=== PATIENT | female | born 1975 | race Hispanic/Latino ===

== ENCOUNTER 2018-10-30 14:39 | Emergency (ER) | payer MEDICARE, MEDICAID ==
[2018-10-30 14:39] VITALS: BMI 42.2
[2018-10-30] MEDS ORDERED: Albuterol-Ipratrop 3 mg / 0.5 (3 ml) UD ONE (15:25)
[2018-10-30] MEDS ORDERED: Albuterol-Ipratrop 3 mg / 0.5 (3 ml) UD INH STA (15:30)
[2018-10-30 16:21] VITALS: BP 102/67; PULSE 102; RESP 18; TEMP 100; O2SAT 95
--- NOTE | 2018-10-30 16:39 | C.PDOC ---
History Of Present Illness Patient reports cough, congestion, headache, fever, chills- "feel freezing", body aches, dizziness, nausea since yesterday. States that headache is what is bothering her most. Reports no sick contacts. HPI: Influenza Time Seen by Provider: 10/30/18 15:17 Chief Complaint: Flu-like Symptoms Past Medical History Reviewed: Historical Data, Nursing Documentation, Vital Signs Vital Signs: Last Vital Signs Temp 100.0 F H 10/30/18 16:20 Pulse 102 H 10/30/18 16:20 Resp 18 10/30/18 16:20 BP 102/67 10/30/18 16:20 Pulse Ox 95 10/30/18 16:20 - Medical History PMH: Bronchitis Denies: Depression Family History: States: Unknown Family Hx - Social History Hx Tobacco Use: Yes (1 pack a day) Hx Alcohol Use: No Hx Substance Use: No - Immunization History Hx Tetanus Toxoid Vaccination: No Hx Influenza Vaccination: No Hx Pneumococcal Vaccination: No Review Of Systems Except As Marked, All Systems Reviewed And Found Negative. Constitutional: Positive for: Fever, Chills ENT: Negative for: Throat Pain Cardiovascular: Negative for: Chest Pain, Palpitations Respiratory: Positive for: Cough. Negative for: Shortness of Breath Gastrointestinal: Positive for: Nausea. Negative for: Vomiting, Abdominal Pain, Diarrhea Musculoskeletal: Positive for: Other (myalgias) Skin: Negative for: Rash Neurological: Positive for: Headache Physical Exam - Physical Exam Appears: Non-toxic, Other (weak) Skin: Normal Color, Warm, Dry Head: Normacephalic Eye(s): bilateral: Normal Inspection Oral Mucosa: Moist Cardiovascular: Rhythm Regular Respiratory: Wheezing (minimal) Gastrointestinal/Abdominal: Normal Exam Extremity: Normal ROM Neurological/Psych: Oriented x3, Normal Speech Gait: Steady Medical Decision Making Medical Decision Making: Patient given tylenol PO and duoneb at triage. Tamiflu 75mg given. On re-eval patient states that she feels a little bit better. Fever decreased from 100.9 to 100.0. HR still 102 (was 103 at triage, but now patient s/p duoneb ). Rx written for tamiflu. Advised plenty of hydration, tylenol/motrin for fever/headache/bodyache, and rest. Return to the ED for any new or worsening symptoms. Otherwise follow up with PMD. - ECG O2 Sat by Pulse Oximetry: 95 Disposition - Disposition Disposition: HOME/ ROUTINE Disposition Time: 16:39 Condition: STABLE Additional Instructions: NERIS BEAR, thank you for letting us take care of you today. Your provider was Evita Grimes MD and you were treated for POSSIBLE FLU LIKE SYMPTOMS. The emergency medical care you received today was directed at your acute symptoms. If you were prescribed any medication, please fill it and take as directed. It may take several days for your symptoms to resolve. Return to the Emergency Department if your symptoms worsen, do not improve, or if you have any other problems. Please contact your doctor or call one of the physicians/clinics you have been referred to that are listed on the Patient Visit Information form that is included in your discharge packet. Bring any paperwork you were given at discharge with you along with any medications you are taking to your follow up visit. Our treatment cannot replace ongoing medical care by a primary care provider outside of the emergency department. Thank you for allowing the [facility] team to be part of your care today. If you had an X-Ray or CT scan: A Radiologist will review the ED reading if any change in treatment is needed we will contact you. If you had a blood, urine, or wound culture: It will take several days for the results, if any change in treatment is needed we will contact you. If you had an STI test: It will take 48 hours for the results. Please call after 1 week if you have not heard back. Prescriptions: Oseltamivir Phosphate [Tamiflu] 75 mg PO BID #10 capsule Instructions: Flu, Adult (DC) Forms: [facility] ([place]) - Clinical Impression Clinical Impression: Influenza-like illness
== END 2018-10-30 16:54 | disposition home or self-care (01) ==
LOC: C.ER 14:39
DX: J11.1 Influenza due to unidentified influenza virus with other respiratory manifestations (principal); F17.210 Nicotine dependence, cigarettes, uncomplicated